=== PATIENT | female | born 1955 | race Caucasian/White ===

== ENCOUNTER → 2018-03-31 | Outpatient (CLI) | payer OTHER ==
[~2018-03-31] MED LIST: GADOBUTROL 7.5 MMOL/7.5 ML PFS ONE
== END | disposition home or self-care (01) ==
LOC: CFH 11:59
PROVIDERS: ATTEND Radiology Radiation Oncology
DX: D32.0 Benign neoplasm of cerebral meninges (principal)
CPT/HCPCS: 70553; 82565; A9585

== ENCOUNTER → 2018-10-18 | Outpatient (CLI) | payer OTHER | END | disposition home or self-care (01) | LOC: CFH 08:58 | PROVIDERS: ATTEND Radiology Radiation Oncology | DX: D32.0 Benign neoplasm of cerebral meninges (principal) | CPT/HCPCS: 70553; A9585 ==

== ENCOUNTER → 2018-10-26 | Outpatient (CLI) | payer OTHER | END | disposition home or self-care (01) | LOC: ROC 07:54 | PROVIDERS: ATTEND Radiology Radiation Oncology | DX: D32.0 Benign neoplasm of cerebral meninges (principal); Z88.0 Allergy status to penicillin; Z88.5 Allergy status to narcotic agent | CPT/HCPCS: 99213; G0463 ==

== ENCOUNTER 2019-02-24 13:29 | Emergency (ER) | payer OTHER ==
[~2019-02-24] VITALS: Ht 165.1 cm; Wt 78.3 kg
--- NOTE | 2019-02-24 13:51 | NUR ---
THIS IS A 63 YO FEMALE COMING IN FOR LEFT FOOT AND LOWER LEG PAIN STARTING 1 WEEK AGO. PATIENT TOOK A PLANE RIDE TO [place], AND THE PAIN AND SWELLING STARTED WHILE THERE. PAIN STARTS IN TOP AND IN THE ANKLE OF LEFT LEG AND RADIATES TO THE BACK OF KNEE MEDIALLY. PATIENT STATES THAT THE WHOLE LEFT FOOD WAS SWOLLEN AND RED, BUT HAS NOW RESOLVED, BUT THE PAIN IS STILL THERE WELL SOME SLIGHT WARMNESS. PATIENT PLACED ON CONTINUOUS SPO2, CYCLE BP Q1HR. CALL LIGHT IN REACH.
[2019-02-24] MEDS ORDERED: ACETAMINOPHEN 500 MG TABLET PO ONE (14:00)
[2019-02-24] MEDS ORDERED: ACETAMINOPHEN 500 MG TABLET ONE (14:44)
[2019-02-24 15:15] VITALS: BP 155/77
== END 2019-02-24 15:17 | disposition home or self-care (01) ==
LOC: ED 14:13
DX: M25.572 Pain in left ankle and joints of left foot (principal); M79.662 Pain in left lower leg
CPT/HCPCS: 99284